=== PATIENT | female | born 1980 | race Caucasian/White ===

== ENCOUNTER 2024-02-11 06:17 | Inpatient (IN) ==
--- NOTE | 2024-01-14 12:37 | PAT Medication Instructions ---
Medication Instructions Date of Service January 14, 2024 Home Medications baclofen 10 mg tablet 10 mg PO TID PRN Muscle Spasms cyclobenzaprine 10 mg tablet 10 mg PO HS PRN Muscle Spams gabapentin 300 mg capsule 300 mg PO TID morphine 15 mg immediate release tablet 15 mg PO BID PRN Pain ondansetron HCl 8 mg tablet 8 mg PO Q8H PRN Nausea & Vomiting oxycodone-acetaminophen 5 mg-325 mg tablet 1 tab PO Q4H PRN Pain Take morning of surgery With a small sip of water, OTHERWISE NOTHING TO EAT OR DRINK AFTER MIDNIGHT: baclofen 10 mg tablet 10 mg PO TID PRN Muscle Spasms (if needed) gabapentin 300 mg capsule 300 mg PO TID morphine 15 mg immediate release tablet 15 mg PO BID PRN Pain (if needed) ondansetron HCl 8 mg tablet 8 mg PO Q8H PRN Nausea & Vomiting (if needed) oxycodone-acetaminophen 5 mg-325 mg tablet 1 tab PO Q4H PRN Pain (if needed) Take evening before surgery baclofen 10 mg tablet 10 mg PO TID PRN Muscle Spasms (if needed) cyclobenzaprine 10 mg tablet 10 mg PO HS PRN Muscle Spams (if needed) gabapentin 300 mg capsule 300 mg PO TID morphine 15 mg immediate release tablet 15 mg PO BID PRN Pain (if needed) ondansetron HCl 8 mg tablet 8 mg PO Q8H PRN Nausea & Vomiting (if needed) oxycodone-acetaminophen 5 mg-325 mg tablet 1 tab PO Q4H PRN Pain (if needed) Other Notes If you have any questions please call us at [phone] or [phone] or [phone] or [phone]
--- NOTE | 2024-01-24 11:13 | Anesthesiology Consultation ---
Date of Service January 24, 2024 Assessment & Plan (1) Encounter for pre-operative examination: - patient declined urine nicotine today as states last had nicotine supplement 2 days ago. She was provided with specimen cup to complete and she plans to return this to [facility] lab or [facility] lab. Surgeon's office made aware. - awaiting surgeon ordered medical clearance, Dr. Mckeon [facility] 01/28/24. PAT testing to be faxed to PCP. - BP: elevated reading in clinic. Multiple contributing factors with patient anxiety/stress regarding surgery, lab draw and drive to [facility]. 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 Denies headache, dizziness, visual changes, chest discomfort, numbness or weakness. She plans to re-check BP when home this afternoon and will call me with updated reading. She tolerated lab draw without dizziness/presyncope which she states has occurred in the past with lab draws. She called and left a voicemail at 1500 that she had just taken her BP and it was 132/84. Chart Review Chart Review: Pending: Refer to Additional Notes / Consult section and Patient seen in Pre Admission Testing Teaching & Discussion Pre-Anesthesia Teaching/Discussion Notes: Instructed NPO after midnight before surgery, except medications with 15 cc of water. Medication instructions provided according to the PAT guidelines. History Surgery Operation Date: 02/11/24 07:45 Proposed Procedures p L5-S1 Revision Decompression and Fusion, L4-L5 Hardware Removal, - Leo Andre DO s Bilateral Sacroiliac Joint Fusion with Spinal Cord Monitoring - Leo Andre DO Height/Weight Height: 5 ft 3 in Weight: 88.2 kg Allergies Allergy/AdvReac Type Severity Reaction Status Date / Time nickel Allergy Intermediate Redness/Swe Verified 01/14/24 10:15 lling/Pus mupirocin AdvReac Severe SOB/Rash/Swelling/Chest Verified 01/14/24 09:47 Tightness nitrofurantoin AdvReac Severe SOB/Chest Verified 01/14/24 09:47 [From Macrobid] Tightness/Hives Sulfa (Sulfonamide AdvReac Severe SOB/Chest Verified 01/14/24 09:47 Antibiotics) Tightness/Hives vancomycin AdvReac Intermediate Red Verified 01/14/24 09:47 Face/Flushing Medications Home Medications Medication Instructions Recorded Confirmed Last Taken baclofen 10 mg tablet 10 mg PO TID PRN Muscle Spasms 01/14/24 01/14/24 Unknown cyclobenzaprine 10 mg tablet 10 mg PO HS PRN Muscle Spams 01/14/24 01/14/24 Unknown gabapentin 300 mg capsule 300 mg PO TID 01/14/24 01/14/24 Unknown morphine 15 mg immediate release 15 mg PO BID PRN Pain 01/14/24 01/14/24 Unknown tablet ondansetron HCl 8 mg tablet 8 mg PO Q8H PRN Nausea & Vomiting 01/14/24 01/14/24 Unknown oxycodone-acetaminophen 5 mg-325 1 tab PO Q4H PRN Pain 01/14/24 01/14/24 Unknown mg tablet Past Medical History Medical History Acid reflux rare, controlled per pt History of asthma childhood History of kidney stones 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 Exercise / Class Metabolic Activity II 4-5 Yardwork/Stairs/Walk up hill (denies chest discomfort or shortness of breath with one flight of stairs) Past Surgical History Surgical History History of bunionectomy left History of endometrial ablation History of lumbar spinal fusion x3 Hx of section x3 Hx of cholecystectomy 09/2019 Hx of lithotripsy Hx of tubal ligation Past Anesthesia History No Hx of Anesthesia Complications and No Family Hx of Anesthesia Complications History of PONV No Hx of PONV and Hx of Motion Sickness Social History Smoking Status: Former smoker (-last used nicotine replacement 2 days ago) Do You Dip or Chew Tobacco: No Hx Alcohol Use: Yes Alcohol type: other alcohol intake frequency: a few times a month Hx Substance Use: No substance use type: does not use Review of Systems Patient denies chest pain, shortness of breath, dyspnea on exertion, snoring, witnessed apneas, fever, chills, cough, wheezing, or palpitations. Physical Exam Vital Signs Vitals BP 165/113 left arm, manual re-check several minutes later 160/108. Patient states that she is very anxious today regarding surgery and lab draws, also had stress with the drive here. P 91 SP02 97% on RA RESP 18 Physical Patient resting comfortably in chair in no acute distress, alert and oriented, responding appropriately throughout visit Full cervical extension range of motion without pain TMD 3.5 finger breadths Mallampati Score 3 Dentition: intact, denies chipped or loose teeth, caps/crowns, implants or bridges Lungs: normal respiratory effort. Good air movement, clear throughout to auscu ltation, no adventitious breath sounds Cardiac: regular rate and rhythm, no murmurs noted Carotid arteries: negative bruit bilat Lab Results Anesthesia Preop Results Results Anesthesia Widget: WBC 8.35 K/ul (4.8-10.8) 01/24/24 Hgb 15.0 g/dl (12.0-16.0) 01/24/24 Hct 43.2 % (37.0-47.0) 01/24/24 Plt 288 K/uL (130-400) 01/24/24 Na 136 mmol/L (136-145) 01/24/24 K 3.6 mmol/L (3.5-5.1) 01/24/24 Cl 97 mmol/L (98-107) L 01/24/24 CO2 28 mmol/L (21-32) 01/24/24 BUN 9 mg/dl (6-23) 01/24/24 Creat 0.80 mg/dl (0.6-1.2) 01/24/24 Glucose Level 118 mg/dl (70-99(Fasting)) H 01/24/24 PT 10.9 Seconds (9.0-12.0) 01/24/24 PTT 24 Seconds (21-31) 01/24/24 INR 1.0 (0.9-1.1) 01/24/24 Blood Type A Positive 01/24/24 Antibody Screen NEGATIVE 01/24/24 Testing Electrocardiogram Date: 01/24/24 NSR, rate 85 bpm Chest X-Ray Date: 01/24/24 No acute cardiopulmonary findings.
--- OUTSIDE RECORDS SUMMARY | 2024-02-11 06:24 | External Medical Summary ---
"Continuity of Care Document (CCD) Created on: February 05, 2024 Purvi Marlyn Bob External Reference #: [id number] : [id number] Sex: Female Author Name Unknown Organization [facility] Address [address], [address] [place] [address] Phone [phone] Care Team Providers Care Principal Accounts Clerk Name Role Phone Delta Mckeon DO Care Team Information Recei dean [phone] Problems Active Problems Provider Date Lumbar spondylolisthesis Deborah Rodriguez PA-C Onset : 03/05/2017 Note: L5S1 Social History Type Date Description Comments Sex Unknown Tobacco Use Reviewed: 01/29/24 Never Smoked Cigarette s Tobacco Use Reviewed: 01/29/24 Never Smoked Cigars Tobacco Use Reviewed: 01/29/24 Never Smoked A Pipe Smoking Status Reviewed: 01/29/24 Never Smoked A Pipe Smokeless Tobacco 01/29/2024 Never Used Smokeless To bacco ETOH Use Occasionally consumes alcoho l Recreational Drug Use Denies Drug Use Allergies and adverse reactions Active Allergies Criticality Reaction | Severity Comments Date Sulfa drugs Unable to assess criticality rash, hives 08/26/2008 Macrobid Unable to assess criticality rash 10/27/2009 Vancomycin Unable to assess criticality Flushing, Itching 08/16/2018 Mupirocin Unable to assess criticality Difficulty breathing, Hives, Wheezing | Severe shortness of breath 06/08/2020 Medications Active Medications SIG Qnty Indications Order ing Provider Date Morphine Sulfate ER15mg Tablets ER 1 by mouth twice daily--ongoing therapy 60tabs M43.16 Delta Mckeon JR, DO 04/16/2023 Cyclobenzaprine ZEQ46vd Tablets take 1 tablet once daily at bedtime if needed for muscle spasms. 30tabs Delta Mckeon JR DO 02/25/2021 Oxycodone-Acetaminophe n5-325mg Tablets 1-2 by mouth every 4 hours as needed for pain after 02/11/24 back surgery--ongoing therapy 180tabs M43.16 Delta Mckeon JR, DO 10/19/2020 Evsfqcqt35sv Tablets take 10mg tab three times a day as needed for muscle spasm 90tabs Delta Mckeon JR, DO 07/14/2020 Isongoblpv90eh Tablets take 1 tablet by mouth once daily- needs an appointment for more refills 90tabs R60.1 Delta Mckeon JR, DO 07/05/2020 [id number] Capsules take one capsule three times daily. 270caps Delta Mckeon JR, DO 11/18/2018 Zofran Odt8mg Tablets Dispers 1 by mouth every 8 hours as needed nausea 30tabs Delta Mckeon JR, DO 06/17/2017 History Medications [id number] Tablets 6 tabs for 2 days, 5 tabs for 2 days, 4 tabs for 2 days, 3 tabs for 2 days, 2 tabs for 2 days, 1 tab for 2 days. 42tabs R05.1 Delta Mckeon JR, DO 11/15/2023 - 11/27/2023 [id number] Tablets 6 tabs for 2 days, 5 tabs for 2 days, 4 tabs for 2 days, 3 tabs for 2 days, 2 tabs for 2 days, 1 tab for 2 days. 42tabs R05.1 Delta Mckeon JR, DO 10/08/2023 - 10/15/2023 Immunizations CPT Code Status Date Vaccine Reaction Lot # [id number] Given 06/04/2015 Tdap (Tetanus, diphtheria & acel. pertussis) Adacel or Boostrix [id number] Given 10/22/2008 TB Intradermal Test O.O M M INDURATION CH BLOCKER AUTOMATIC 10/24/08 [id number] 63529 Given 10/15/2008 TB Intradermal Test [id number] 18023 Given 04/23/2007 HPV Vaccine (Gardasil) [id number] [id number] Given 02/05/2007 Tdap (Tetanus, diphtheria & acel. pertussis) Adacel or Boostrix 44149 Given 02/05/2007 Tdap (Tetanus, diphtheria & acel. pertussis) Adacel or Boostrix [id number] 61847 Given 02/05/2007 HPV Vaccine (Gardasil) 92048 Given 02/05/2007 HPV Vaccine (Gardasil) [id number] 46509 Refused 01/29/2024 Moderna Covid-1 9 Vaccine 50mcg Booster-EMR Doc Only [id number] Refused 01/29/2024 Influenza Vac, Split 6 Months And Older 32669 Refused 12/04/2022 Influenza Virus Vaccine, Quadrivalent (Cciiv4), Derived From Cell 34578 Refused 11/25/2019 Influenza Virus Vaccine, Quadrivalent, [place] Use 42698 Refused 11/18/2018 Influenza Virus Vaccine, Quad, Preserv Free, 6Mon And Up 84942 Refused 12/04/2017 Influenza Virus Vaccine, Quad, Preserv Free, 6Mon And Up 26369 Refused 01/22/2013 Influenza Vac, Split 6 Months And Older Vital Signs Date Vital Result Comment 01/29/2024 1:38pm BP Systolic 156 mmHg BP Diastolic 104 mmHg Body Temperature 97.9 F Heart Rate 82 /min Respiratory Rate 18 /min Weight 172.38 lb refused Weight 78.200 kg 04/16/2023 1:39pm BP Systolic 158 mmHg BP Diastolic 104 mmHg Body Temperature 97.4 F Heart Rate 92 /min Respiratory Rate 18 /min Medical Devices Description No Information Available Encounters Type Date Location Provider Dx Diagnosis Office Visit 01/29/2024 1:30p [facility] Car Rincon PA-C Z01.818 Encounter for other preprocedural examination M54.16 Radiculopathy, lumba r region M48.061 Spinal stenosis, lum bar region without neurogenic milton T84.9xxD Unsp comp of interna l orthopedic prosth dev/grft, subs Assessments Date Code Description Provider 01/29/2024 Z01.818 Encounter for other preproce dural examination Car Rincon PA-C 01/29/2024 M54.16 Radiculopathy, lumbar region Car Rincon PA-C 01/29/2024 M48.061 Spinal stenosis, lumbar region without neurogenic claudication Car Rincon PA-C 01/29/2024 T84.9xxD Unspecified comp lication of internal orthopedic prosthetic device, implant and graft, subsequent encounter Car Rincon PA-C Plan of Treatment 01/29/2024 - Car Rincon PA-C* Z01.818 Encounter for other preprocedural examination * M54.16 Radiculopathy, lumbar region * M48.061 Spinal stenosis, lumbar region without neurogenic claudication * T84.9xxD Unspecified complication of internal orthopedic prosthetic device, implant and graft, subsequent encounter * All* Comments:* Verbalized understanding of A&P. Functional Status Description No Information Available Mental Status Description No Information Available Referrals Description No Information Available"
[2024-02-11] MEDS ORDERED: DEXAMETHASONE SOD INJ 4 MG/ML VIAL ONE (06:35)
[2024-02-11] MEDS ORDERED: LIDOCAINE 2% 2 ML VIAL/AMP(20MG/ML) INFIL ONE (06:35)
[2024-02-11] MEDS ORDERED: ROCURONIUM BROMIDE 10 MG/ML 5 ML VIAL IV ONE ×3 (06:35→10:23)
[2024-02-11] MEDS ORDERED: GLYCOPYRROLATE 0.2 MG/ML VIAL ONE (06:35)
[2024-02-11] MEDS ORDERED: ONDANSETRON INJ 2 MG/ML 2 ML VIAL ONE (06:35)
[2024-02-11] MEDS ORDERED: PROPOFOL IV EMULSION 10 MG/ML 20 ML VIAL IV ONE (06:35)
[2024-02-11] MEDS ORDERED: ATROPINE SULFATE 0.1 MG/ML 10ML SYR IV PRN (06:41)
[2024-02-11] MEDS ORDERED: ePHEDrine sulfate 50 MG/ML AMP IV PRN (06:41)
[2024-02-11] MEDS ORDERED: ONDANSETRON INJ 2 MG/ML 2 ML VIAL IV PRN ×2 (06:41→13:00)
[2024-02-11] MEDS ORDERED: PROMETHAZINE HCL 6.25 MG in SODIUM CHLORIDE 0.9% 50 ML IV PRN (06:41)
[2024-02-11] MEDS ORDERED: MIDAZOLAM HCL 1 MG/ML 2ML VIAL ONE (06:43)
[2024-02-11] MEDS ORDERED: HYDROmorphone INJ 2 MG/ML SYR/VIAL ONE (06:43)
[2024-02-11] MEDS ORDERED: KETAMINE HCL 10MG/ML SYR ONE (06:45)
[2024-02-11] MEDS ORDERED: ALBUMIN HUMAN 5% 12.5 GM/250 ML VIAL IV ONE (06:52)
[2024-02-11] MEDS: LR 60ML/HR IV SCH (07:05)
[2024-02-11] MEDS: LACTATED RINGER'S 1,000 ML IV SCH (07:06)
[2024-02-11] MEDS: GABAPENTIN 900 MG DOSE PO SCH (07:08)
[2024-02-11] MEDS: ACETAMINOPHEN 500 MG TAB PO SCH (07:08)
[2024-02-11] MEDS: CeleBREX 200 MG CAP PO SCH (07:09)
[2024-02-11] MEDS: SCOPOLAMINE 1 MG/72 HR TDSY PATCH TD STA (07:12)
--- NOTE | 2024-02-11 07:41 | History & Physical Bridge Note ---
Date of Service February 11, 2024 History & Physical Bridge Note I have examined the patient, reviewed the History & Physical and in the interval since the performance of the History & Physical I have noted the following changes of clinical significance: no changes noted
--- NOTE | 2024-02-11 07:42 | History & Physical Report ---
Date of Service February 11, 2024 Assessment & Plan (1) Neurogenic claudication due to lumbar spinal stenosis: Plan: L5-S1 revision decompression and fusion L4-L5 hardware removal bilateral sacroiliac joint fusion History of Present Illness Chief Complaint: Back and leg pain Primary Care Provider: Car Rincon This is a 43-year-old female who presents for chronic persistent back and leg pain after failing course of nonoperative care she is here for surgical invention. Allergies Allergy/AdvReac Type Severity Reaction Status Date / Time nickel Allergy Intermediate Redness/Swe Verified 02/11/24 06:36 lling/Pus mupirocin AdvReac Severe SOB/Rash/Swelling/Chest Verified 02/11/24 06:36 Tightness nitrofurantoin AdvReac Severe SOB/Chest Verified 02/11/24 06:36 [From Macrobid] Tightness/Hives Sulfa (Sulfonamide AdvReac Severe SOB/Chest Verified 02/11/24 06:36 Antibiotics) Tightness/Hives vancomycin AdvReac Intermediate Red Verified 02/11/24 06:36 Face/Flushing Home Medications Medication Instructions Recorded Confirmed Type baclofen 10 mg tablet 10 mg PO TID PRN Muscle Spasms 01/14/24 02/11/24 History cyclobenzaprine 10 mg tablet 10 mg PO HS PRN Muscle Spams 01/14/24 02/11/24 History gabapentin 300 mg capsule 300 mg PO TID 01/14/24 02/11/24 History morphine 15 mg immediate release 15 mg PO BID PRN Pain 01/14/24 02/11/24 History tablet ondansetron HCl 8 mg tablet 8 mg PO Q8H PRN Nausea & Vomiting 01/14/24 02/11/24 History oxycodone-acetaminophen 5 mg-325 1 tab PO Q4H PRN Pain 01/14/24 02/11/24 History mg tablet cholecalciferol (vitamin D3) 125 125 mcg PO DAILY 02/11/24 02/11/24 History mcg (5,000 unit) tablet (Vitamin D3) Past Med/Surg History Problem List (Updated 02/11/24 @ 07:41 by Leo Andre DO) Neurogenic claudication due to lumbar spinal stenosis Encounter for pre-operative examination Medical History Acid reflux rare, controlled per pt History of asthma childhood History of kidney stones 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 - Corrected at age 19 at [facility] Surgical History History of bunionectomy left History of endometrial ablation History of lumbar spinal fusion x3 Hx of section x3 Hx of cholecystectomy 09/2019 Hx of lithotripsy Hx of tubal ligation Social History Smoking Status: Former smoker (-last used nicotine replacement 2 days ago) Second Hand Exposure: No; Do You Dip or Chew Tobacco: No; Tobacco Cessation Education Requested by Patient: No Hx Alcohol Use: Yes Alcohol type: other Hx Substance Use: No Preferred Language: Argentine Communication Ability: Effective Commercial Diver Required: No Beliefs That Will Affect Care: None Current Living Situation: Spouse Other Information That Helps Us Care for You: No Feels Safe at Home: Yes Safety Concerns: Feels Safe At This Time Assistive Devices: None Physical Exam Physical Exam: Patient is alert and oriented Heart regular rhythm Lungs clear Results & Data Results & Data Vital Signs (Past 12 Hours) Vital Signs Temp Pulse Resp BP Pulse Ox O2 Del Method 02/11/24 06:41 37 C 90 18 156/101 H 96 Room Air
[2024-02-11] MEDS: ceFAZolin 2000MG 2,000 MG/15 ML SYR IV SCH ×2 (07:53→17:53)
[2024-02-11] MEDS ORDERED: SUGAMMADEX SODIUM 200 MG/2 ML VIAL IV ONE (08:11)
[2024-02-11] MEDS ORDERED: KETOROLAC 30 MG/ML VIAL ONE (08:11)
[2024-02-11] MEDS: BUPIVACAINE/EPINEPHRINE 0.25% 1:200,000 30 ML VIAL ONE (08:35)
[2024-02-11] MEDS ORDERED: SODIUM CHLORIDE 0.9% PF INJ 10 ML VIAL ONE (09:43)
[2024-02-11] MEDS: ceFAZolin 330 MG/ML 1 GM VIAL ONE (10:52)
[2024-02-11] MEDS: FLOSEAL HEMOSTATIC MATRIX 10ML TOP ONE (10:55)
--- NOTE | 2024-02-11 11:14 | Operative Report ---
Post Operative Report Pre & Post Diagnosis Operation Date: 02/11/24 07:45 Pre-Op Diagnosis: #1 lumbar Radiculopathy, Neuroforaminal Stenosis Lumbar, Neurogenic claudication due to lumbar spinal stenosis #2 nonunion L5-S1 Post-Op Diagnosis: Same I identified the patient and participated in the time-out.: Yes Procedure Operation Date: 02/11/24 07:45 Actual Procedures #1 removal of posterior instrumentation L4-L5. #2 exploration of fusionL4-L5 L5-S1. #3 revision decompression with foraminotomies and facetectomy L5-S1. #4 posterior spinal fusion L4-S1. #5 bilateral open sacroiliac joint fusions. #6 placement posterior instrumentation L4-L5 with bilateral iliac bolts. #7 placement of Nevro 1 SI joint fusion implants bilaterally. #8 revision interbody fusion L5-S1. #9 placement of Spira 14 x 26 mm at L5-S1. #10 placement infuse collagen sponge combined with Koros in the posterior lateral gutters and os design bone graft in the interbody space and bilateral sacroiliac joints. Surgeon Leo Andre, DO Burner Operator Shy Baltazar Estimated Blood Loss 150 Findings Consistent with Post-Op Diagnosis Specimens None Indications This is a 43-year-old female presents problems diagnosis after failing extensive course of nonoperative care is here for surgical invention. Description of Procedure Patient was met with identified informed consent obtained. Patient was then taken to the operative suite underwent intubation placed in a prone position on the William table on top of the Hugh frame. All bony prominences well-padded eyes inspected to ensure no external pressure placed upon them. This point the lumbar spine was prepped and draped in normal sterile fashion. Sharp dissection with the assistance of Bovie cautery from down to and exposing the instrumentation at L4-L5 the remaining lamina at L5-S1 in the bilateral SI joints and iliac crest. I then proceeded move the hardware bilaterally at L4- L5. Explored the fusion mass noting it to be mature and intact. The fusion mass at L5-S1 demonstrate evidence of being incomplete. Pedicle screws were pl aced in L4-L5 bilaterally. I then performed a revision decompression L5-S1 with foraminotomies on the right and complete facetectomy. Then performed a discectomy at L5-S1 revising the interbody fusion. A 14 x 26 mm Spira cage filled with os design bone graft tapped in position. Then placed bilateral iliac bolts. I then began on the left by curetting out the left SI joint drill and chisel to subcortical bleeding bone. Then placed a 9 mm Nevro 1 implant filled with os design bone graft into the joint interdigitating the ileum to the sacrum. I repeated the process on the right again curetting and drilling out the SI joint to subcortical bleeding bone and placing a 9 mm Nevro 1 implant filled with os design os design bone graft directly the joint interdigitating the ileum to the sacrum. Appropriate size rods were then placed and locked into position bilaterally. The transverse processes of L4 L5 and the sacral ala burred to subcortical bleeding bone. Infuse collagen sponge, with Koros was placed in posterior lateral gutters. 15 round MANE drain inserted. In the incision closed with subcutaneous Vicryl and 4 Monocryl for fascial closure. Steri-Strips sterile dressing placed. Patient waken taken PACU stable condition. Please note spinal cord monitoring was utilized at the procedure no changes noted. Shy Baltazar was present at the entire surgery and while the patient positioning complex portion of the surgery and final skin closure. Im ordering 20 grams of Triple [place] Collagen Powder (Yobble [id number]) to treat an incision wound that was caused by a spine procedure. The incision is approximately 2 cm(W) x 4 cm(L) into the joint (D) in size and is a full thickness wound. Triple [place] collagen comes in 1 gram packets so 20 packets were ordered. Given the size of the wound, with light to moderate exudate I chose to order a 20 day supply. The patient will be provided instructions for proper application of the collagen wound kit. The patient will be asked to leticia ly the collagen powder daily and then cover it with sterile dressings dispensed. Collagen was selected as I expect the collagen to attract monocytes and fibroblasts, act as a sacrificial substrate for MMPs, and ultimately proved a matrix for tissue and vessel growth. The collagen will act as a primary dressing in this scenario. It is medically necessary for proper healing of these wounds to improve bioavailability and contact with each wound surface, this is also to help prevent infection of wounds and promote healing ultimately leading to a better healing outcome and limit the risk of infection. I attest to the content of the Intraoperative Record and any orders documented therein. Any exceptions are noted below.
[2024-02-11] MEDS: fentaNYL citrate PF 100 MCG/2 ML VIAL IV PRN (11:33)
[2024-02-11] MEDS: HYDROmorphone INJ 1 MG/ML SYRINGE IV PRN ×2 (11:53→15:17)
[2024-02-11] MEDS ORDERED: HYDROmorphone INJ 0.5 MG/0.5 ML SYR IV PRN (12:22)
[2024-02-11] MEDS: HYDROmorphone INJ 1 MG/ML SYRINGE ONE (12:23)
--- NOTE | 2024-02-11 12:29 | Fluoroscopy Report ---
FL lumbar spine 2-3V CLINICAL HISTORY: L5-S1 REVISION, L4-L5 HARDWARE REMOVAL COMPARISON STUDY: Lumbar spine CT November 23, 2023. FLUOROSCOPY TIME: 1 minute and 42 seconds. Ka, r: 94.79 mGy FLUOROSCOPIC IMAGES: 4 FINDINGS: Fluoroscopy was provided during hardware removal, revision L4-S1 posterior spinal fusion an d bilateral sacroiliac joint fusion. L5-S1 spacer is in place. Previous L3-L4 anterior discectomy and fusion is noted. IMPRESSION: Fluoroscopy provided during hardware removal, revision L4-S1 posterior spinal fusion and bilateral sacroiliac joint fusion. ACT 112: Negative or not required by law. Electronically signed by: Collin Bullard M.D. 02/11/2024 12:28 PM
[2024-02-11] MEDS ORDERED: MoRPHine SULFATE IR 15 MG TAB (IMMEDIATE RELEASE) PO PRN (13:00)
[2024-02-11] MEDS ORDERED: DO NOT ADMINISTER FLU VACCINE PRN (13:00)
[2024-02-11] MEDS ORDERED: PROMETHAZINE 12.5 MG/50.5 ML BAG IV PRN (13:00)
[2024-02-11] MEDS ORDERED: MAGNESIUM HYDROXIDE SUSP 30 ML UDC PO PRN (13:00)
[2024-02-11] MEDS ORDERED: NALOXONE HCL 0.4 MG/1 ML VIAL/CARP IV PRN (13:00)
[2024-02-11] MEDS ORDERED: hydrOXYzine HCl 25 MG TAB PO PRN (13:00)
[2024-02-11] MEDS ORDERED: SOD PHOSPHATE/SOD BIPHOSPHATE ENEMA 132 ML BTL PR PRN (13:00)
[2024-02-11] MEDS ORDERED: BACLOFEN 10 MG TAB PO PRN (13:00)
[2024-02-11] MEDS ORDERED: DO NOT ADMINISTER PNEUMOCOCCAL VACCINE PRN (13:00)
[2024-02-11] MEDS ORDERED: METOCLOPRAMIDE HCL INJ 5 MG/ML 2 ML VIAL IV PRN (13:00)
[2024-02-11] MEDS ORDERED: ALUMINUM/MAGNESIUM SUSP 30 ML UDC PO PRN (13:00)
[2024-02-11] MEDS ORDERED: traMADol HCL 50 MG TABLET PO PRN (13:00)
[2024-02-11] MEDS ORDERED: FAMOTIDINE 20 MG TAB PO PRN (13:00)
[2024-02-11] MEDS ORDERED: LORazepam 2 MG/1 ML VIAL IV PRN (13:00)
[2024-02-11] MEDS ORDERED: ACETAMINOPHEN 500 MG TAB PO PRN (13:00)
[2024-02-11] MEDS ORDERED: ONDANSETRON 4 MG OD TAB PO PRN (13:00)
[2024-02-11] MEDS ORDERED: bisacodyL 10 MG SUPP PR PRN (13:00)
[2024-02-11] MEDS: oxyCODONE HCL IR 5 MG TAB (IMMEDIATE RELEASE) PO PRN (14:35)
[2024-02-11] MEDS: GABAPENTIN 300 MG CAP PO SCH (14:37)
--- NOTE | 2024-02-11 15:39 | Anesthesiology Progress Note ---
Date of Service February 11, 2024 Anesthesia Post Procedure Vital Signs Vital Signs: Temp Pulse Pulse Resp BP Pulse Ox O2 Del Method 02/11/24 14:56 101 H 18 134/80 93 Room Air 02/11/24 13:58 96 H 16 119/77 94 Room Air 02/11/24 13:25 92 H 18 119/74 96 Room Air 02/11/24 12:40 36.6 C 97 H 16 134/78 95 Room Air 02/11/24 12:30 100 H 18 149/81 H 93 Room Air 02/11/24 12:20 95 H 14 125/82 92 Room Air 02/11/24 12:10 96 H 14 126/89 98 Room Air 02/11/24 12:00 97 H 12 150/93 H 97 Room Air 02/11/24 11:50 98 H 14 165/94 H 99 Room Air 02/11/24 11:40 106 H 20 144/98 H 94 Oxymask 02/11/24 11:30 86 14 141/90 H 100 Oxymask 02/11/24 11:22 36.5 C 83 16 131/82 100 Oxymask 02/11/24 06:41 37 C 90 18 156/101 H 96 Room Air O2 Flow Rate 02/11/24 14:56 02/11/24 13:58 02/11/24 13:25 02/11/24 12:40 02/11/24 12:30 02/11/24 12:20 02/11/24 12:10 02/11/24 12:00 02/11/24 11:50 02/11/24 11:40 2 02/11/24 11:30 4 02/11/24 11:22 6 02/11/24 06:41 Pain Intensity Back: Pain Intensity: 7 Transfer of Care Handoff Completed per policy Notes Mental Status: alert / awake / arousable and participated in evaluation Patient Amnestic to Procedure: Yes Nausea / Vomiting: adequately controlled Pain: adequately controlled Airway Patency, RR, SpO2: stable & adequate BP & HR: stable & adequate Hydration State: stable & adequate Anesthetic Complications: no major complications apparent and Pt Satisfied with anesthetic care
[2024-02-11] MEDS: CHECK SCOPOLAMINE PATCH PLACEMENT SCH (17:46)
[2024-02-11] MEDS: MoRPHine SULFATE IR 15 MG TAB (IMMEDIATE RELEASE) PO SCH (20:26)
[2024-02-11] MEDS: DOCUSATE SODIUM/SENNA 50/8.6MG TAB PO SCH (20:26)
[2024-02-12] MEDS: POLYETHYLENE (MIRALAX) 17 GM PACK PO SCH (05:29)
[2024-02-12 07:14] LABS: Basophils # (auto) 0.03 K/uL (0.00-0.20); Basophils % (auto) 0.4 %; Eosinophils # (auto) 0.01 K/uL (0.00-0.50); Eosinophils % (auto) 0.1 %; Hemoglobin 11.2 g/dl (12.0-16.0); Immature Granulocytes # (auto) 0.07 K/uL (0.01-0.20); Immature Granulocytes % (auto) 0.8 %; Lymphocytes # (auto) 1.72 K/uL (1.20-3.40); Lymphocytes % (auto) 20.5 %; Mean Corpuscular Hemoglobin 32.3 pg (25.0-34.0); Mean Corpuscular Hgb Conc 32.9 g/dL (32.0-36.0); Mean Platelet Volume 9.9 fL (9.4-12.4); Monocytes # (auto) 0.94 K/uL (0.11-0.59); Monocytes % (auto) 11.2 %; Neutrophils # (auto) 5.64 K/uL (1.40-6.50); Platelet Count 226 K/uL (130-400); RDW Coefficient of Variation 11.6 % (11.5-14.5); RDW Standard Deviation 41.6 fL (36.4-46.3); Red Blood Count 3.47 M/uL (4.20-5.40); White Blood Count 8.41 K/ul (4.8-10.8)
[2024-02-12 07:32] LABS: BUN Creatinine Ratio 9.5 (10-20); Calcium 8.4 mg/dl (8.6-10.3); Creatinine Clr Calc Pharmacy 98.8 ml/min; Potassium 3.3 mmol/L (3.5-5.1)
[2024-02-12] MEDS: ACETAMINOPHEN 1,000 MG/100 ML VIAL IV PRN (08:03)
[2024-02-12] MEDS: KETOROLAC 30 MG/ML VIAL IV PRN (08:04)
[2024-02-12] MEDS: CHOLECALCIFEROL 125 MCG (5,000 UNITS) TAB PO SCH (08:05)
[2024-02-12] MEDS: dexAMETHasone 6 MG in SYRINGE 0 ML IV SCH (08:06)
--- NOTE | 2024-02-12 10:47 | Orthopedic Progress Note ---
Date of Service February 12, 2024 Assessment & Plan (1) Neurogenic claudication due to lumbar spinal stenosis: Plan: Brooke is postoperative day 1 status post revision fusion L3-S1 including bilateral iliac bolts and SI joint fusions. Will continue with physical therapy and ambulation today. Work on pain control. Maintain MANE drain. DVT prophylaxis is in the form of teds and SCDs. Anticipate discharge home the latter half of the week. Admission and Anticipated Discharge Date Admission Date: February 11, 2024 Vale Meyers is postoperative day 1 status post revision fusion L3-S1 including iliac bolts/SI joint fusions. She has some back pain but it is improved compared to preoperative status. No radicular leg pain. She was meeting with physical therapy upon our evaluation and standing for the first time. Chambers catheter is intact and draining. MANE drain output last shift was 145 cc. H&H is morning are 11.2 and 33.0 respectively. She has no other complaints. Review of Systems Review of Systems: All systems reviewed & are unremarkable except as noted in HPI & below Physical Exam Physical Exam: Patient was also evaluated with Dr. Andre. She sitting on the edge of the bed in no acute distress Alert and oriented x 3 she was able to stand and walk a few steps during her evaluation Strength intact bilateral lower extremities Lumbar dressing is clean dry and intact with functioning MANE drain Results & Data Vital Signs (Past 12 Hours) Vital Signs Temp Pulse Resp BP Pulse Ox O2 Del Method 02/12/24 07:08 37.2 C 74 16 111/66 98 Room Air 02/12/24 03:01 36.7 C 77 18 108/70 96 Room Air 02/11/24 23:38 37.0 C 89 18 111/70 96 Room Air
[2024-02-12] MEDS: ACETAMINOPHEN 500 MG TAB PO PRN (17:54)
--- NOTE | 2024-02-13 08:15 | Orthopedic Progress Note ---
Date of Service February 13, 2024 Assessment & Plan (1) Neurogenic claudication due to lumbar spinal stenosis: Plan: Brooke is postoperative day 2 status post revision fusion L3-S1 including iliac bolts and SI joint fusions. I will continue physical therapy and ambulation today. DVT prophylaxis is in the form teds and SCDs. Continue with pain control. Maintain MANE drain. Anticipate discharge home tomorrow Admission and Anticipated Discharge Date Admission Date: February 11, 2024 Subjective Brooke is postoperative day 2 status post revision fusion L3-S1 including iliac bolts and SI joint fusions. She has complaints of back pain. It is different compared to preoperative pain. Radicular leg pain has resolved. Yesterday in physical therapy Ambulating 120 feet. MANE drain output last shift is 105 cc. She had a bowel movement. Review of Systems Review of Systems: All systems reviewed & are unremarkable except as noted in HPI & below Physical Exam Physical Exam: She is alert and oriented x 3 No acute distress lumbar dressing is clean dry and intact with functioning MANE drain strength intact bilateral lower extremities Results & Data Vital Signs (Past 12 Hours) Vital Signs Temp Pulse Resp BP Pulse Ox O2 Del Method 02/13/24 07:45 37.3 C 78 16 130/83 99 Room Air 02/12/24 21:42 36.5 C 78 16 113/72 95 Room Air
[2024-02-13] MEDS: LORazepam 0.5 MG TAB PO PRN (14:44)
[2024-02-13] MEDS: HYDROmorphone INJ 0.5 MG/0.5 ML SYR IV PRN (20:59)
[2024-02-14 07:08] VITALS: RESP 16
--- NOTE | 2024-02-14 10:43 | Orthopedic Progress Note ---
Date of Service February 14, 2024 Assessment & Plan (1) Neurogenic claudication due to lumbar spinal stenosis: Plan: At this time we will continue physical therapy monitor MANE output anticipate discharge home tomorrow. Admission and Anticipated Discharge Date Admission Date: February 11, 2024 Subjective Patient is tolerating physical therapy but continues to struggle with lumbosacral back pain. Leg pain is improved. Ambulation improving. Physical Exam Physical Exam: On exam patient is sitting up at bed. She is constricted testing. Sensory is intact. Results & Data Vital Signs (Past 12 Hours) Vital Signs Temp Pulse Resp BP Pulse Ox O2 Del Method 02/14/24 07:06 37.2 C 71 16 138/87 99 Room Air
[2024-02-14] MEDS: diphenhydrAMINE Capsule 25 MG CAP PO PRN (20:13)
[2024-02-15 07:26] VITALS: BP 147/94; PULSE 75; TEMP 98.4; O2SAT 99
--- NOTE | 2024-02-15 10:13 | Discharge Summary ---
Date of Service February 15, 2024 Admission HPI Per Admitting Provider This is a 43-year-old female who presents for chronic persistent back and leg pain after failing course of nonoperative care she is here for surgical invention. Principal Diagnosis Failed fusion L5-S1 with radiculopathy Discharge Data Allergies Allergy/AdvReac Type Severity Reaction Status Date / Time nickel Allergy Intermediate Redness/Swe Verified 02/11/24 06:36 lling/Pus mupirocin AdvReac Severe SOB/Rash/Swelling/Chest Verified 02/11/24 06:36 Tightness nitrofurantoin AdvReac Severe SOB/Chest Verified 02/11/24 06:36 [From Macrobid] Tightness/Hives Sulfa (Sulfonamide AdvReac Severe SOB/Chest Verified 02/11/24 06:36 Antibiotics) Tightness/Hives vancomycin AdvReac Intermediate Red Verified 02/11/24 06:36 Face/Flushing Procedures Performed Operation Date: 02/11/24 07:45 Actual Procedures p L5-S1 Revision Decompression and Fusion,(Not Applicable) - Leo Andre DO s Bilateral Sacroiliac Joint Fusion, Spinal Cord Monitoring(Not Applicable) - Leo Andre DO s L4-L5 Hardware Removal,(Not Applicable) - Leo Andre DO Ordered Studies 02/11/24 [place] lumbar spine 2-3V Routine Hospital Course (1) Neurogenic claudication due to lumbar spinal stenosis: Patient underwent lumbar decompression and fusion. She tolerates well. She progressed appropriately throughout her postoperative stay. Ambulation and stairs improving. Extra strength testing. Pain well-controlled. Subsidy discharged home. Discharge orders instructions from the chart for further review. Total Time Total Time Spent Total Time Spent (In Minutes): 20 minutes Discharge Plan Discharge Items Patient Disposition: Home - Self-Care Reason For Visit: Lumbar Radiculopathy, Neuroforaminal Stenosis Lumb Discharge Diagnosis: Nonunion L5-S1 Activity: As commented below Non-emergency contact: Primary Care Provider Call non-emergency contact if: you have any medication questions Follow-up/Referrals: Car Rincon PA-C [Primary Care Provider] - Diet: Regular Addtl Attending Provider Instructions: ACTIVITY RECOMMENDATIONS: SELF CARE INSTRUCTIONS AFTER THORACIC/LUMBAR FUSIONS 1. You may walk to your tolerance. It is good exercise for your legs and back. Expect some back and intermittent leg aches and pains. 2. You may perform "counter-top" level activities (make a sandwich, elisha with a project, etc.). 3. No bending or lifting of more than 10 pounds or back twisting of any nature (roll like a log when turning in bed). 4. You may ride in a car for 20-30 minutes at a time. No driving until after your first visit with your doctor. 5. Frequent changes of position and restricting sitting to 30 minutes at a time will help limit the amount of back spasms and stiffness you may experience. 6. You may discontinue the use of ambulatory aids (cane, crutches, etc.) once your strength and confidence allow. 7. You may health and fitness instructor the shower and let water strike your incision when you arrive home at least once daily. Do not take a tub bath, sit in a hot tub or go into a swimming pool until after your first recheck in the office. 8. You may resume previous diet. SPECIAL CARE INSTRUCTIONS: VERY IMPORTANT TO READ AND REVIEW A. Your surgical incision has been closed with a cosmetic suture under the skin that will dissolve in about 6 weeks. In 14 days, you can use a pair of clean scissors and cut the suture that is left outside of the skin at the ends of your incision. 1. The small skin tapes can be removed 7 days after surgery if they have not fallen off by that point. 2. You may keep the wound open to air as much as possible to promote healing after post-op day number 5 unless told otherwise by your doctor. 3. If you think the wound looks like it is becoming infected (redness or worsening drainage) and/or you are experiencing fever, chill or worsening back pain and muscle spasms, contact the office so that we may evaluate you as soon as possible. B. Complications are uncommon, but please contact us if you have any signs or symptoms of: 1. wound infection (fever higher than 102.5 degrees F, redness, separation of wound, drainage, or increasing pain from the incision) 2. blood clots in legs (pain, swelling, redness and warmth in legs) 3. urinary tract infection (fever higher than 102.5 degrees F, burning upon urination or increased frequency of urination) 4. nerve problems (inability to walk on your toes or heels, numbness, loss of bowel or bladder control) 5. any other symptoms that concern you C. Please call the office at if you have any concerns or questions about your operation or recovery. D. No smoking! Smoking drastically decreases the chance of a solid fusion. E. Do not take any anti-inflammatory medications (Indocin, Advil, Motrin, Aspirin, Naprosyn, etc.) as these may inhibit the chance of a solid fusion. Tylenol is okay to take for pain. MANAGING PAIN AFTER SPINAL SURGERY 1. Narcotic medication is intended for short-term use and will be provided for surgical pain. Surgical pain usually lasts for a period of 4-6 weeks. Narcotic medication includes Percocet, Vicodin, Darvocet, Tylenol #3 or Lortab. 2. Longer-term pain is more appropriately treated with non-narcotic medication such as Tylenol ES. 3. Muscle spasm is not appropriately treated with narcotics. Muscle relaxers such as Soma, Flexeril or Skelaxin can be used along with Tylenol ES. 4. Remember that we all live with some "aches and pains". This is not unusual or uncommon after an injury or as we get older. a. Back pain is expected and may include muscle spasms for 4 to 6 weeks after surgery. The pain should gradually improve. If the pain worsens for no apparent reason, please contact the office. b. Intermittent leg pain may also be experienced and should not be concerned about unless it worsens for no apparent reason. If so, please contact the office. 5. We will provide appropriate medication within the normal guidelines of their prescribed use. We will also be very cautious and aware of potential abuse and extended duration of patients' medication needs. a. Pain medications are for your comfort and to assist with sleep and rest so that the tissue can heal. They are not provided in order to return to normal activity and should not be used through the day. To do so or worsening pain at night can result from ongoing tissue damage and development of tolerance to the prescribed medicine. 6. Please allow 2-3 days to process refills. Prescriptions will not be mailed but must be picked up at the office. FOLLOW UP VISIT: Keep your scheduled follow-up appointment. Any questions, please call the office at . Pending Studies at Discharge: No Stand-Alone Forms: [facility], Smoking Cessation Medications and DC Order Prescriptions: New oxycodone 5 mg tablet 5 mg PO Q6H PRN (Reason: pain) Qty: 30 0RF Continued cyclobenzaprine 10 mg Tablet 10 mg PO HS PRN (Reason: Muscle Spams) ondansetron HCl [Zofran] 8 mg Tablet 8 mg PO Q8H PRN (Reason: Nausea & Vomiting) oxycodone-acetaminophen 5-325 mg Tablet 1 tab PO Q4H PRN (Reason: Pain) baclofen 10 mg Tablet 10 mg PO TID PRN (Reason: Muscle Spasms) gabapentin 300 mg Capsule 300 mg PO TID Patient Comments: "I only take 1 tab maybe 2 tabs at hs" morphine 15 mg Tablet 15 mg PO BID PRN (Reason: Pain) cholecalciferol (vitamin D3) [Vitamin D3] 125 mcg (5,000 unit) Tablet 125 mcg PO DAILY Discharge Orders: Discharge Order (Routine); Ordered 02/15/24 Ordered By: Leo Andre Admission Data Admit Date/Time: 02/11/24 11:17 Attending Provider: Leo Andre Admit Provider: Leo Andre Primary Care Provider: Car Rincon
== END 2024-02-15 15:01 | disposition home or self-care (01) | DRG 427 ==
LOC: ASU 06:17 → 3E 11:17